=== PATIENT | female | born 1990 | race American Indian/Alaskan Native ===

== ENCOUNTER 2018-02-15 08:08 | Emergency (ER) | payer SELFPAY ==
[2018-02-15 08:15] VITALS: BP 114/69
--- NOTE | 2018-02-15 08:34 | Emergency Department Report ---
ED Rash HPI - HPI Chief Complaint: Skin Rash Stated Complaint: RASH ON CHEST Time Seen by Provider: 02/15/18 08:27 Duration: over one week Location: Chest Rash Symptoms: Yes Itching (occasional it checked), No Facial Swelling, No Tongue/Oral Swelling, No Breathing Difficulties, No Choking Sensation, No Wheezing/Dyspnea, No Peeling, No Blistering, No Fever, No Lightheaded, No Malaise, No Myalgias ED Review of Systems ROS: Stated complaint: RASH ON CHEST Other details as noted in HPI Constitutional: denies: chills, fever Eyes: denies: eye pain, eye discharge, vision change ENT: denies: ear pain, throat pain Respiratory: denies: cough, shortness of breath, wheezing Cardiovascular: denies: chest pain, palpitations Endocrine: no symptoms reported Gastrointestinal: denies: abdominal pain, nausea, diarrhea Genitourinary: denies: urgency, dysuria, discharge Musculoskeletal: denies: back pain, joint swelling, arthralgia Skin: rash. denies: lesions Neurological: denies: headache, weakness, paresthesias Psychiatric: denies: anxiety, depression Hematological/Lymphatic: denies: easy bleeding, easy bruising ED Past Medical Hx - Past Medical History Previous Medical History?: No - Surgical History Past Surgical History?: No - Social History Smoking Status: Current Every Day Smoker Substance Use Type: None - Medications Home Medications: Home Medications Medication Instructions Recorded Confirmed Last Taken Type Amoxicillin 500 mg PO BID #30 capsule 02/02/18 Unknown Rx Rash Exam - Exam General: Vital signs noted. No distress. Alert and acting appropriately. HEENT: No Periorbital Edema, No Conjuctival Injection, No Chemosis, No Perioral Edema, No Tongue Edema, No Uvular Edema, No Compromised Airway, No Drooling Lungs: Yes Good Air Exchange (Normal Breath Sounds), No Wheezes, No Ronchi, No Stridor, No Cough, No Labored Respirations, No Retractions, No Use of Accessory Muscles, No Other Abnormal Lung Sounds Heart: Yes Regular, No Murmur Skin: Yes Other (oval scaly hypopigmented patch-like rash is scattered onto torso with a larger similar patch found in the left mid back likely the herald patch) Other: Positive: Abdomen Normal, Neurologic Normal, Musculoskeletal Normal ED Course Vital Signs 10/25/18 08:12 Temperature 97.9 F Pulse Rate 102 H Respiratory 18 Rate Blood Pressure 114/69 O2 Sat by Pulse 100 Oximetry ED Medical Decision Making - Medical Decision Making Advised patient will palliative [id number] treatment options as in overcomes [facility], calamine lotion, [id number], and histamine such as Claritin, Benadryl. Critical care attestation.: If time is entered above; I have spent that time in minutes in the direct care of this critically ill patient, excluding procedure time. ED Disposition Clinical Impression: Pityriasis in adult Disposition: DC-01 TO HOME OR SELFCARE Is pt being admited?: No Does the pt Need Aspirin: No Condition: Stable Instructions: Pityrceleste hollowaya (ED) Referrals: [facility] [Provider Group] - 3-5 Days
== END 2018-02-15 08:40 | disposition home or self-care (01) ==
LOC: ED 08:08
DX: L21.0 Seborrhea capitis (principal); F17.200 Nicotine dependence, unspecified, uncomplicated
CPT/HCPCS: 99282

== ENCOUNTER 2018-07-03 19:31 | Emergency (ER) | payer OTHER ==
--- NOTE | 2018-07-03 20:58 | Emergency Department Report ---
Blank Doc - Documentation Documentation: painful rash to left hip after finding out she was . rash causes tingl ing down leg
--- NOTE | 2018-07-03 22:47 | Emergency Department Report ---
ED Rash HPI - HPI Chief Complaint: Skin Rash Stated Complaint: LEG TINGLING/RASH Time Seen by Provider: 07/03/18 20:53 Duration: 2 Days Location: Lower Extremities (left thigh) Rash Symptoms: Yes Itching, Yes Blistering, No Fever Severity: moderate Other History: 27-year-old -[place] female comes to the emergency room reporting rash to her left thigh. Patient reports she noticed it 2 days ago but has been itching before it starts burning with tingling going distal to her thigh. Patient reports that she is 5 weeks . Last menstrual. Was 06/02/2018. Patient does admit to working with elderly patients. ED Review of Systems ROS: Stated complaint: LEG TINGLING/RASH Other details as noted in HPI Comment: All other systems reviewed and negative Constitutional: denies: fever, malaise Skin: rash ED Past Medical Hx - Past Medical History Previous Medical History?: No - Surgical History Past Surgical History?: No - Social History Smoking Status: Former Smoker Substance Use Type: None - Medications Home Medications: Home Medications Medication Instructions Recorded Confirmed Last Taken Type Amoxicillin 500 mg PO BID #30 capsule 02/02/18 Unknown Rx Acyclovir [Zovirax] 30 gm TP Q8H PRN #30 oint...g. 07/03/18 Unknown Rx Lidocaine [Lidocaine CREAM] 15 gm TP QID PRN #30 cream..g. 07/03/18 Unknown Rx Rash Exam - Exam General: Vital signs noted. No distress. Alert and acting appropriately. HEENT: No Periorbital Edema, No Conjuctival Injection, No Chemosis, No Perioral Edema, No Tongue Edema, No Uvular Edema, No Compromised Airway, No Drooling Lungs: Yes Good Air Exchange (Normal Breath Sounds), No Wheezes, No Ronchi, No Stridor, No Cough, No Labored Respirations, No Retractions, No Use of Accessory Muscles, No Other Abnormal Lung Sounds Skin: Yes Erythema, Yes Other (left lateral thigh group vesicles on erythematous base tender to palpate no discharge appreciated) ED Course Vital Signs 07/03/18 20:53 Temperature 98.4 F Pulse Rate 107 H Respiratory 18 Rate Blood Pressure 119/73 O2 Sat by Pulse 99 Oximetry ED Medical Decision Making - Medical Decision Making Patient has been evaluated by this provider and [facility]. Discussed patient is appears to be a herpes zoster outbreak. Patient is 5 weeks therefore we will treat topical with Zovirax topical and lidocaine cream. Patient is to take Tylenol for pain management. She needs to follow up with OB. Patient verbalizes understanding Critical care attestation.: If time is entered above; I have spent that time in minutes in the direct care of this critically ill patient, excluding procedure time. ED Disposition Clinical Impression: Herpes zoster of thigh Disposition: DC- TO HOME OR SELFCARE Is pt being admited?: No Does the pt Need Aspirin: No Condition: Stable Instructions: Herpes Zoster (ED) Additional Instructions: Please use medication as prescribed. Tylenol for pain management. 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 Prescriptions: Lidocaine [Lidocaine CREAM] 15 gm TP QID PRN #30 cream..g. PRN Reason: Pain , Severe (7-10) Acyclovir [Zovirax] 30 gm TP Q8H PRN #30 oint...g. PRN Reason: Pain , Severe (7-10) Referrals: LEYDA ORTIZ MD [Primary Care Provider] - 3-5 Days [facility] [Provider Group] - 3-5 Days Forms: Work/School Release Form(ED)
== END 2018-07-03 23:27 | disposition home or self-care (01) ==
LOC: ED 19:31
CPT/HCPCS: 99282